=== PATIENT | female | born 1935 | race Hispanic/Latino ===

== ENCOUNTER 2018-02-07 17:39 | Inpatient (IN) | payer MEDICARE, MEDICAID ==
[~2018-02-07] VITALS: Ht 172.7 cm; Wt 46.3 kg
[2018-02-07 19:50] VITALS: BP 133/99
[2018-02-07] MEDS ORDERED: DIVA500T2 PO (20:03)
[2018-02-07] MEDS ORDERED: ALPR0.5T PO (20:03)
[2018-02-07] MEDS ORDERED: VILA40TA PO (20:03)
[2018-02-07] MEDS ORDERED: OLAN10TA9 PO (20:03)
[2018-02-07] MEDS ORDERED: CLON1TAB3 PO (20:03)
[2018-02-07] MEDS: KLONOPIN PO SCH (21:00)
[2018-02-07] MEDS ORDERED: DEPAKOTE SPRINKLE PO SCH (21:00)
[2018-02-07] MEDS ORDERED: XANAX PO PRN (21:00)
[2018-02-07] MEDS ORDERED: HALDOL PO PRN (21:30)
[2018-02-07] MEDS ORDERED: HALDOL IM PRN (21:30)
--- NOTE | 2018-02-07 23:30 | NUR ---
ADMIT PT. WAS ON THE UNIT FOLLOWING SHIFT REPORT. PT.'S SON WITH HER. PT. HIGH FALL RISK. DR. MARSHALL SKYPED WITH PT. AND HER SON. MEDICATION ORDERS RECEIVED DR. TYLER HAS BEEN NOTIFIED OF PT.S ARRIVAL. PER INQUIRY AT THE LONGTERM PT. WAS YELLING , DELUSIONAL,PARANOID SLEEP DISTURBANCE,LOOSING WEIGHT AND ANXIOUS.
--- NOTE | 2018-02-08 00:05 | NUR ---
DR. JAYSON TYLER NOTIFIED UNIT AND STATED HE WAS GOING TO VIEW PT.'S MEDICATIONS THIS MORNING.
[2018-02-08] MEDS ORDERED: MAGN400O7 PO (00:09)
[2018-02-08] MEDS ORDERED: SIME80TA16 PO (00:09)
[2018-02-08] MEDS ORDERED: TRAM50TA PO ×2 (00:09→00:30)
[2018-02-08] MEDS ORDERED: MECL25TA3 PO (00:09)
[2018-02-08] MEDS ORDERED: HYDR28.311 RC (00:09)
[2018-02-08] MEDS ORDERED: PHEN-406 PO (00:09)
[2018-02-08] MEDS ORDERED: ACET500T73 PO ×2 (00:09→00:30)
[2018-02-08] MEDS ORDERED: RANO500T2 PO (00:30)
[2018-02-08] MEDS ORDERED: PRAV20TA2 PO (00:30)
[2018-02-08] MEDS ORDERED: OXYB5TAB7 PO (00:30)
[2018-02-08] MEDS ORDERED: SODI1TAB15 PO (00:30)
[2018-02-08] MEDS ORDERED: VILA40TA PO (00:30)
[2018-02-08] MEDS ORDERED: LEVO50TA6 PO (00:30)
[2018-02-08] MEDS ORDERED: [UNRECOGNIZED DRUG - CODE] PO (00:30)
[2018-02-08] MEDS ORDERED: POTA10CA PO (00:30)
[2018-02-08] MEDS ORDERED: CLON0.1T PO (00:30)
[2018-02-08] MEDS ORDERED: ONDA4TAB7 PO (00:30)
[2018-02-08] MEDS ORDERED: LOSA50TA6 PO (00:30)
[2018-02-08] MEDS ORDERED: DICY10CA52 PO (00:30)
[2018-02-08] MEDS ORDERED: PANT40TA3 PO (00:30)
[2018-02-08] MEDS ORDERED: LUBI24CA7 PO (00:30)
[2018-02-08] MEDS ORDERED: CLOP75TA52 PO (00:30)
[2018-02-08] MEDS ORDERED: DOCU-123 PO (00:30)
[2018-02-08] MEDS ORDERED: LACT1CAP23 PO (00:30)
[2018-02-08] MEDS ORDERED: HYDR12.58 PO (00:30)
[2018-02-08] MEDS ORDERED: ASPI-655 PO (00:30)
--- NOTE | 2018-02-08 05:42 | NUR ---
PT. HAS NOT SLEPT,BEEN RESTLESS AND REQUIRED NURSE TO BE WITH HER AT ALL TIMES. ATTEMPTS TO GET OUT OF CHAIR AND BED WITHOUT ASKING FOR ASSIST AND IS NOT REDIRECTABLE..
--- NOTE | 2018-02-08 05:46 | NUR ---
BEHAVIORS PT. HAS ASKING WHAT ABOUT THE DOLL, PT. STATING SHE NEEDS TO SEE HER MOM THAT SHE DOES NOT KNOW SHE IS HERE. PT. WAS TALKING ABOUT DOING HER HOMEWORK. PT. STATED SHE WAS IN [employer]. PT. WAS LYING IN BED STATING THERE IS A DOG LYING ON HER FOOT. PT. ASKING TO GO TO THE BR FREQUENTLY. HAS HAD TWO LARGE BOWEL MOVEMENTS WITH SMALL AMOUNT OF BRIGHT RED BLOOD VISIBLE AND THIS HAS BEEN REPORTED TO DR. TYLER. PT. HAS HEMORRHOIDS.
[2018-02-08] MEDS: COLACE PO SCH (07:30)
[2018-02-08] MEDS: AMITIZA PO SCH (07:30)
[2018-02-08] MEDS ORDERED: TYLENOL PO PRN (07:30)
[2018-02-08] MEDS: RANEXA PO SCH (07:30)
[2018-02-08 07:56] VITALS: BP 189/79
[2018-02-08] MEDS: KLOR-CON 10 PO SCH ×2 (08:00→17:00)
--- NOTE | 2018-02-08 08:25 | NUR ---
behavior note: Patient has been yelling out for her . She is refusing to get out of bed, shower or take medications. Blood Pressure is 189/79 and she is on blood pressure medications. We will continue to offer fluids, food and medications.
--- NOTE | 2018-02-08 08:40 | PSYCH ---
DATE OF SERVICE: 02/07/2018 INITIAL PSYCHIATRIC HISTORY AND PHYSICAL CHIEF COMPLAINT: "I have not been eating very well." HISTORY OF PRESENT ILLNESS: This patient is an 82-year-old female who was an involuntary admission to the [facility]. She was accompanied by her son who had to give a lot of the history. The patient has a long history of severe dementia. It has been progressively getting worse. The patient has shown more behavior problems recently. She has had an extremely poor appetite and has been losing a lot of weight. She has reportedly lost about 30 pounds over the past month. She currently is 68 inches tall and weighs 102 pounds. She has had a lot of sundowning behavior. She has shown aggressive and irritable behavior toward staff. Staff has felt like she is a threat to harming others due to her aggressive and psychotic behavior. She has increased paranoia recently. She has odd and delusional thinking. She has had auditory and visual hallucinations reported by staff. She has a lot of somatic complaints including abdominal pain. She had a medical workup today done that was normal. She does see Dr. Solange Helms for mental health outpatient by telemedicine at the [facility] where she lives. The patient reportedly has been taking medications and has had multiple medication changes recently. She has been on Viibryd in the past that was not helpful and made her worse. Her son feels like she has been declining and had a lot worse behavior recently. The patient is a poor historian. She was able to state her name. She did not know the date today. She stated that the season was "summer." She was disoriented to place, time, and situation. She does have a poor appetite. Her sleep is up and down. She has odd and delusional thinking. She has auditory and visual hallucinations. She denied suicidal or homicidal ideation. Staff at the facility feels like she is a threat to harming herself and others due to her delusional and odd thinking. She is also a danger of deterioration. The patient has an increased anxiety level. She has been shaking a lot per staff. She is not able to give any other history tonight. Her son had to give most of the history as stated above. PAST PSYCHIATRIC HISTORY: The patient sees Dr. Solange Helms, who is a psychiatrist by Telemedicine at the [facility]. She has been diagnosed with dementia with behavior disturbance and unspecified anxiety in the past. She has never been hospitalized for psychiatric reasons. She has taken Xanax and multiple other psychiatric medications in the past. Benadryl reportedly causes her to be disoriented. She reportedly has been on Ativan in the past and had an adverse reaction to this and that is why she is on Xanax p.r.n. She has been on Lexapro in the past that was ineffective. She has been on Celexa in the past that was ineffective. She has been on Paxil and Cymbalta that did not help. She has been on Remeron in the past that did not help her gain weight. PAST MEDICAL HISTORY: 1. Aneurysm in 2011. 2. History of abdominal pain. 3. Gastroesophageal reflux disease. 4. Irritable bowel syndrome. 5. Hypothyroidism. 6. Constipation. 7. Arthritis. 8. Hypertension. 9. Low potassium. ALLERGIES: 1. PENICILLIN 2. CIPRO. 3. CODEINE. 4. LASIX. 5. SULFA DRUGS. CURRENT MEDICATIONS: 1. Xanax 0.5 mg p.o. q.6 hours p.r.n. anxiety. 2. Clonazepam 1 mg p.o. b.i.d. 3. Depakote 125 mg p.o. b.i.d. 4. Zyprexa 10 mg p.o. at bedtime. 5. Acidophilus 100 mg p.o. b.i.d. 6. Potassium 10 mEq p.o. b.i.d. 7. Plavix 75 mg p.o. daily. 8. Pravastatin 20 mg p.o. at bedtime. 9. Protonix 40 mg p.o. daily. 10. Ranexa 500 mg p.o. daily. 11. Aspirin 81 mg p.o. daily. 12. Simethicone 80 mg p.o. b.i.d. 13. Tylenol 500 mg p.o. t.i.d. 14. Tramadol p.r.n. 15. Losartan 50 mg p.o. daily. FAMILY PSYCHIATRIC HISTORY: None reported. SOCIAL HISTORY: The patient denies using tobacco, alcohol, or illicit drugs. She was in 2014. She had been since 1958. She has 2 sons. She is of the Restorationism orthodoxy. She graduated from high school. 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 She has good social support from her son. OBJECTIVE: VITAL SIGNS: Height is 68 inches, weight is 102 pounds, blood pressure is 144/76, heart rate is 84, respirations are 19, temperature is 97.2. The patient was in no physical pain or distress at the time of the interview. STRENGTHS: Family support, physical health intact. WEAKNESSES: Very confused, deteriorating dementia, recent weight loss and not eating very well. REVIEW OF SYSTEMS: CONSTITUTIONAL: Ongoing significant weight loss, some fatigue, no current insomnia with medication. NEUROLOGICAL: No headaches, no tremors, some dizziness, some weakness. PSYCHIATRIC: Some depression, severe anxiety, positive for psychosis, no crying spells. No abdoul. GASTROINTESTINAL: No diarrhea, no constipation, no nausea, intermittent stomach and gas pain, not reported today. MUSCULOSKELETAL: No abnormal muscle movements, no current pain. CARDIOVASCULAR: No chest pain or chest palpitations. RESPIRATORY: No shortness of breath. No wheezing or coughing. GENITOURINARY: No problems urinating. No pain on urination. No increased frequency. ENDOCRINE: No heat or cold intolerance. EYES: No eye pain or recent changes in vision. EARS: No recent changes in hearing. EXTREMITIES: Some lower extremity edema. SKIN: No current problems. Review of systems otherwise negative, reviewed by Dr. Huntley. MENTAL STATUS EXAMINATION: MUSCLE STRENGTH AND TONE: No recent changes . Within normal limits for the patient. GAIT AND STATION: Ataxic, falls risk, uses a walker. Small steps with very slow gait. APPEARANCE: Well groomed and good hygiene. She was not wearing dentures. Casual attire. Underweight. ATTITUDE AND BEHAVIOR: Cooperative and pleasant. EYE CONTACT: Good eye contact. MOOD AND AFFECT: Mood is reported as okay. Affect is constricted. SPEECH: Regular rate, volume, rhythm, and prosody. ORIENTATION: Oriented to person only. Disoriented to place, time, and situation. ATTENTION/CONCENTRATION: Fair attention and fair concentration. JUDGMENT/INSIGHT: Poor judgment and poor insight. THOUGHT PROCESS: Linear and goal directed. Loose at times. LANGUAGE: Citizen Of [place] and [place]. THOUGHT CONTENT: No suicidal or homicidal thoughts tonight. Positive for hallucinations. Positive for odd and delusional thinking. Positive for paranoia. FUND OF KNOWLEDGE: Poor. ASSOCIATIONS: Loose associations at times. MEMORY: Recent and remote memory are both impaired. ASSESSMENT: Major depressive disorder, recurrent, severe; generalized anxiety disorder; delusional disorder; primary insomnia; Alzheimer's type dementia. TREATMENT PLAN: 1. The patient will be an involuntary admission to the [facility] at the [facility]. The patient will be monitored closely for behaviors. 2. The patient's Viibryd will be discontinued. Her Depakote will be increased to 250 mg p.o. b.i.d. She will have her Depakote level monitored. She will be continued on Zyprexa 10 mg p.o. at bedtime. She will be continued on clonazepam 1 mg p.o. b.i.d. She will be continued on Xanax 0.5 mg p.o. q.6 hours p.r.n. anxiety. She will be placed on Haldol 2 mg p.o. or IM q.6 hours p.r.n. psychosis. The patient and the patient's son were agreeable with the plan. 3. The patient will see the general medical doctor for general medical health issues. The nurse on the unit will call the intermediate to confirm medications as there were some confusion of what general health medications she was on. We did review her medications with her son. 4. The patient will be encouraged to participate in all groups and activities. Hemalatha Huntley IV MD DR: /chyna JOB# [id number]
--- NOTE | 2018-02-08 08:55 | NUR ---
OT EVALUATION Information gathered from pt EMR to assist with evaluation process. Evaluation to be completed this date by RADHA Taylor. Signed: 02/08/18 at 854 by NARGIS Hull OT Addendum: 02/08/18 at 854 by NARGIS Hull OT Amended: Links added.
--- NOTE | 2018-02-08 08:57 | NUR ---
notified Dr. Fragoso: Yesterday fpc reported that patient had a small formed BM on 02/07/18. Upon assessment today patient is having blood from rectum and vagina, abdomen is hard, distended and near absent bowel sounds. Dr. Fragoso notified and he is placing orders.
[2018-02-08] MEDS: HYDROCHLOROTHIAZIDE PO SCH (09:00)
[2018-02-08] MEDS: PLAVIX PO SCH (09:00)
[2018-02-08] MEDS: BACID PO SCH ×2 (09:00→20:25)
[2018-02-08] MEDS: DEPAKOTE SPRINKLE PO SCH ×2 (09:00→20:26)
[2018-02-08] MEDS ORDERED: BENTYL PO SCH (09:00)
[2018-02-08] MEDS: ASPIRIN EC PO SCH (09:00)
[2018-02-08] MEDS: PROTONIX PO SCH (09:00)
[2018-02-08] MEDS: GENASYME PO SCH ×2 (09:00→20:27)
[2018-02-08] MEDS: KLONOPIN PO SCH ×2 (09:00→20:26)
[2018-02-08 09:17] LABS: CALCIUM 10.1 mg/dL (8.4-10.5)
[2018-02-08 09:19] LABS: BASOPHIL % 0.3 % (0.0-0.2); EOSINOPHIL % 0.3 % (0.0-5.0); HEMOGLOBIN 12.7 g/dL (12.0-15.0); LYMPHOCYTES # 0.8 10^3/uL (1.0-4.8); LYMPHOCYTES % 8.2 % (24.0-44.0); MEAN CELL HGB 26.7 pg (26-34); MEAN CELL HGB CONCENTRATION 31.5 g/dL (33-37); MEAN CORP VOLUME 84.8 fL (78-100); MEAN PLATELET VOLUME 9.9 fL (7.8-11.0); MONOCYTES # 0.8 10^3/uL (0.3-0.8); MONOCYTES % 7.9 % (5.0-12.0); NEUTROPHIL # 7.9 10^3/uL (1.8-7.7); NEUTROPHILS % 83.2 % (41.0-85.0); RED CELL DISTRIBUTION WIDTH 16.9 % (11.5-14.5); WHITE BLOOD CELL 9.5 10^3/uL (4.5-11.0)
--- NOTE | 2018-02-08 09:30 | NUR ---
BEHAVIOR NOTE: Patient offered Xanax 0.5 mg po mixed in water in syringe. Patient spit some of the mixed medication out.
[2018-02-08] MEDS: ULTRAM PO PRN (10:55)
[2018-02-08] MEDS: ZYPREXA ZYDIS PO SCH ×2 (11:38→20:25)
[2018-02-08] MEDS: BENTYL PO SCH ×2 (14:42→20:25)
--- NOTE | 2018-02-08 14:42 | NUR ---
BEHAVIOR NOTE: Patient is restless and wandering. unable to sit still. She is confused and disoriented and requiring 1:1 for safety of patient. She is talking about the past and referencing about people that are . Haldol 2 mg po offered to patient but she refused. Haldol 2 mg IM administered for above mentioned behaviors.
--- NOTE | 2018-02-08 14:50 | NUR ---
Dr. Fragoso notified: Dr. Fragoso notified about continued bleeding from vagina and rectum approx several quarter sized areas and that she has had x4 bloody briefs changed. Dr. Fragoso making an OB consult and writing orders for KUB.
--- NOTE | 2018-02-08 15:42 | NUR ---
FAMILY CONTACT: ANURAG SPOKE TO SONYARON TO INVITE HIM TO TREATMENT TEAM ON 02/09/18. SON STATES HE WILL NOT BE ABLE TO MAKE THIS MEETING BUT WILL TRY TO MAKE THE NEXT. ANURAG INFORMED SON THAT WE HAVE THESE MEETINGS EVERY WEDNESDAY MORNING AT 0800/0830. SON VERBALIZED UNDERSTANDING.
--- NOTE | 2018-02-08 15:45 | NUR ---
MMSE: . PT ORIENTED TO SELF Addendum: 02/08/18 at 1545 by Mikaela Burroughs LMSW SW Amended: Links added.
--- NOTE | 2018-02-08 15:45 | NUR ---
GMAS: 0 PT UNABLE TO COGNITIVELY COMPLETE ASSESSMENT. PT INVOLUNTARY Addendum: 02/08/18 at 1546 by Mikaela Burroughs LMSW SW Amended: Links added.
--- NOTE | 2018-02-08 15:49 | NUR ---
SYMPTOMATOLOGY EVAL: PT PRESENTED A DIRECT ADMIT FROM [facility] DUE TO REPORTED INCREASE IN ANXIETY, DELUSIONAL THOUGHTS, HALLUCINATIONS, CRYING AND YELLING OUT AND SEVERE PARANOIA. STAFF REPORTS THAT PT THINKS SOMEONE IS TRYING TO RAPE HER. STAFF REPORTS THAT PT HAS NOT BEEN SLEEPING OR EATING AND HAS LOST 30 POUNDS OVER THE PAST MONTH. PT CURRENTLY RESIDES AT [facility] IN [facility] AND WILL RETURN UPON DISCHARGE. RECOMMENDED INPATIENT TREATMENT ON THE [facility] ON AN INVOLUNTARY STATUS AT THIS TIME. Addendum: 02/08/18 at 1553 by DILCIA Pak Amended: Links added.
--- NOTE | 2018-02-08 16:51 | NUR ---
NOTIFIED Dr. Fragoso Notified Dr. Fragoso of patient not urinating all shift. Instructed to bladder scan patient and notify him of results. Addendum: 02/08/18 at 1704 by APRIL Clark RN results of bladder scan is greater than 999cc. Dr. Fragoso notified.
--- NOTE | 2018-02-08 18:00 | NUR ---
Dr. Russo: Dr. Russo here for insertion of catheter with guide wire. 1600cc out red tinged urine out. Urine sample obtained for urinalysis.
--- NOTE | 2018-02-08 18:15 | DIREP ---
PROCEDURE:XRAY ABDOMEN SINGLE VW COMPARISON:[facility], CR, XRAY ABDOMEN SINGLE VW, 04/22/2017, 02:21 PM. INDICATIONS:Abdominal distension FINDINGS: BOWEL GAS PATTERN:No obstruction. Bowel is displaced out of the pelvis by 18 cm mass, presumably fluid-filled bladder CALCIFICATIONS:None significant. LUNG BASES:Clear. BONES:Normal. OTHER:No additional findings. CONCLUSION: 1. Large bladder mass, presumably fluid-filled bladder Dictated by: Fan Matson Jr. on 02/08/2018 at 06:09 PM
--- NOTE | 2018-02-08 18:20 | NUR ---
Notified Son: Notified son of patient status and being transferred to Med/Surg for treatment and son Gerson agreed and will notify other family members.
--- NOTE | 2018-02-08 18:24 | NUR ---
IV 18g IV saline lock to Lt antecubital attempt x1 with aseptic technique.
[2018-02-08 19:00] VITALS: BP 144/62
--- NOTE | 2018-02-08 19:14 | NUR ---
PIRP: P: ALTERED THOUGHT PROCESS. I: Provide medications as ordered . Encourage attendance and participation of all groups. Assist patient in differentiating between internal and external reality. R: Patient has not taken any medication today by mouth except for Tramadol. She has not eaten or drank and has required insertion of catheter d/t unable to void. See previous notes. Patient has been restless and has wandered with staff at side and gait belt in use of walker. Patient has been talking to people that are , but has been easily redirected. P: Continue current plan of care. When resulted notify Dr. Fragoso of Cat Scan results.
--- NOTE | 2018-02-08 19:50 | DIREP ---
PROCEDURE:CT ABDOMEN/PELVIS W/ CONTRAST COMPARISON:[facility], CT, CT ABD/PELVIS W/ CONTRAST, 02/27/2016, 05:36 PM. INDICATIONS:Suprapubic pain and concern for enteric fistula TECHNIQUE:Axial images were created through the abdomen and pelvis with non-ionic intravenous contrast material. No oral contrast was administered. Sagittal and coronal reconstructions were performed from source images. FINDINGS: LUNG BASES:No consolidation. No effusion LIVER:Multiple hepatic cysts, unchanged from the 2016 compares BILIARY:Interval enlargement of the gallbladder may represent hydrops. The common duct diameter is unchanged but there is a questionable radiodensity at the most distal end of the common duct less than 5 mm in diameter, series 2/image 31. This could represent a distal stone. PANCREAS:Normal. No lesion, fluid collection, ductal dilatation, or atrophy. SPLEEN:Normal. No enlargement or focal lesion. ADRENALS:Normal. No mass or enlargement. URINARY TRACT:Lower pole nephrolith left kidney 5 mm in diameter. No obstruction detected lower pole cyst left kidney 1.4 cm in diameter unchanged. AORTA/VASCULAR:Normal. No aneurysm. RETROPERITONEUM:Paucity of intra-abdominal fat BOWEL/MESENTERY:No oral contrast, limited evaluation of the small bowel. No fluid-filled or dilated small bowel loops detected. ABDOMINAL WALL:Normal. No mass or hernia. PELVIC ORGANS:Free fluid in the pelvis , retained stool in the rectum, Glass catheter in the bladder BONES:Lumbar spondylosis, no compression fractures OTHER:Negative. CONCLUSION:Distended gallbladder. Possible distal gallstone at the ampulla series 2/image 31. Paucity of intra-abdominal fat. No free air detected. No oral contrast. Moderate retained stool rectum. Dictated by: Geni Osborn MD on 02/08/2018 at 07:40 PM
[2018-02-08 20:01] LABS: BILIRUBIN,URINE NEGATIVE (NEGATIVE); UA COLOR BLOODY (YELLOW)
[2018-02-08 20:02] LABS: APPEARANCE,URINE CLOUDY (CLEAR); WBC,URINE TNTC WBC/HPF (0-2)
--- NOTE | 2018-02-08 20:07 | NUR ---
CT CALLED AND NOTIFIED DR. TYLER OF CT REPORT OF ABDOMEN. ORDERS RECEIVED TO KEEP PATIENT ON UNIT. D/C IV, PUSH FLUID AND TO CONTINUE WITH MEDICATION AND DIET ORDERED.
[2018-02-08] MEDS: MAG-OX PO SCH (20:26)
--- NOTE | 2018-02-08 20:38 | NUR ---
STATUS DR. MARSHALL NOTIFIED OF PATIENT'S CT RESULTS AND PLACEMENT OF MENDOZA CATHETER. VERBAL ORDERS RECEIVED TO KEEP PT 1:1 R/T WANDERING, AND ATTEMPTING TO PULL OUT CATHETER. Addendum: 02/08/18 at 2042 by Deborah Hernández RN- ANKUR RN TELEPHONE ORDER RECEIVED FOR 1:1
[2018-02-08] MEDS ORDERED: DITROPAN PO SCH (21:00)
[2018-02-08] MEDS ORDERED: COZAAR PO SCH (21:00)
[2018-02-08] MEDS ORDERED: ZOCOR PO SCH (21:00)
--- NOTE | 2018-02-09 04:47 | NUR ---
PIRP P-ALTERED THOUGH PROCESS, RISK FOR FALLS I- 1:1 MONITORING. INSTRUCT ON USE OF ASSISTIVE DEVICES FOR SAFE AMBULATION. GIVE MEDICATION ORDERED. ENCOURAGE PARTICIPATION IN GROUP. PROVIDE SUPPORTIVE ENVIRONMENT. RE-DIRECT WHEN NECESSARY. R-PATIENT QUIET, SHOWING SOME CONFUSION. UNABLE TO ANSWER DEPRESSION OR ANXIETY LEVEL. ATTEMPTED TO GET OUT OF BED SEVERAL TIMES, STATING THAT SHE WANTED TO GET INTO BED. P-CONTINUE WITH PLAN OF CARE.
[2018-02-09] MEDS ORDERED: SYNTHROID PO SCH (06:30)
[2018-02-09 07:41] VITALS: BP 179/75
[2018-02-09] MEDS: AMITIZA PO SCH (07:47)
[2018-02-09] MEDS: RANEXA PO SCH (07:48)
[2018-02-09] MEDS: COLACE PO SCH (07:48)
--- NOTE | 2018-02-09 08:10 | NUR ---
Status Pt is alert and oriented to self. Has calm, cooperative affect. Has not been restless or combative this A.M. Slept approx 8.25hr @ HS. Reports feeling "some" discomfort to lower abdomen, but states, "It's a lot better than it was." Interacts appropriately with staff, does not initiate interaction but responds appropriately to approach.
--- NOTE | 2018-02-09 08:52 | NUR ---
Tx team Pt was seen by Dr. Huntley and tx team. Dr. Fragoso present to discuss pt's status regarding xray and CT findings. Recommendation made for pt to discharge with hospice care, as pt no longer meets inpatient criteria. Pt's son, Maury Pond, notified of status and discharge plan, agreeable to discharging pt back to [facility] with hospice care. Spoke to Susy Bauman @ [facility] and notified of plan.
--- NOTE | 2018-02-09 09:08 | PRM.PN ---
Mood: UP AND DOWN Sleep: SLEPT 8.25 HOURS LAST NIGHT, SLEEPING BETTER Appetite: LOW APPETITE Suidical thoughts: NONE REPORTED Homicidal thoughts: NONE REPORTED Recent stressors: STRESS OF MENTAL ILLNESS Family support: SON IS SUPPORTIVE Aggressive Behavior: NONE REPORTED Ability to Perform ADL'sc: NEEDS ASSISTANCE Psychotic sympstoms: DELUSIONAL THINKING RELATED TO DEMENTIA Manic Symptoms: NONE REPORTED Living situation: LIVES AT [facility] Illicit Drug usec: NONE REPORTED Alcoholo use: NONE REPORTED Tobacco use: NONE REPORTED Family,PT,Surgical,&Current HX: Anxity Symptoms: MODERATE ANXIETY LEVEL Anger/Irritablility: LIMITED ANGER AND IRRITABILITY Muscle Strength & Tone: WNL Gait & Station: Ataxic Appearance: Appears older, Well groomed/hygience, Casual attire, Underweight Attitude & Behaviour: Uncooperative, Poor eye contact Mood & Affect: Euthymic/appr/congruent Orientation: Disoriented to place, Disoriented to time, Disoriented to situation Attention/Concentration: Poor attention, Poor concentration Speech: Impaired Judgement/Insight: Poor judgement, Poor insight Thought Process: Loose, Tangential Language: Argentine, Other Thought content/Abnormal/Psych: Delusions Fund of Knowledge: Other Associations: SOHA Memory (recent and remote): Recent memory repaired, Remote memory repaired Constitutional: None Neurological: None Psychiatric: Depressed, Anxious, Psychosis Hematite I: DELUSIONAL DISORDER; PSYCHOSIS; ANXIETY; DEMENTIA Hematite II: DEFERRED Hematite III: REFER TO PMH/MEDICAL CHART Hematite IV: STRESS OF MENTAL ILLNESS, STRESS OF MEDICAL ISSUES Hematite V: GAF=25 Assessment/Plan Assessment/Plan Assessment/Plan THE PATIENT WAS SEEN BY DR. MARSHALL FACE TO FACE ALONG WITH THE TREATMENT TEAM. THE PATIENT'S VITAL SIGNS WERE: CZ=216/75, TEMP.=98.6, PULSE=69, RESP.=16, O2 SAT WAS 97% ON RA. THE PATIENT SLEPT 8.25 HOURS LAST NIGHT. THE PATIENT HAS A POOR APPETITE. 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 THE PATIENT HAS HAD A CATHETER PLACED. SHE HAS BEEN FEELING BETTER SINCE HER CATHETER WAS PLACED. THE PATIENT DENIES FEELING DEPRESSED. THE PATIENT DENIES SI OR HI. THE PATIENT DENIES FEELING ANGRY. THE PATIENT IS NOT HAVING AUDITORY OR VISUAL HALLUCINATIONS. THE PATIENT WAS GIVEN PRN HALDOL YESTERDAY DUE TO YELLING. ( BEFORE THE CATHETER WAS PLACED.) THE PATIENT WAS ABLE TO STATE HER NAME. THE PATIENT IS DISORIENTED TO PLACE, TIME, AND SITUATION. THE PATIENT REPORTS LESS PHYSICAL PAIN TODAY. THE PATIENT HAS SOME DELUSIONAL THINKING RELATED TO HER DEMENTIA. THE PATIENT HAS A MODERATE ANXIETY LEVEL. DR. MARSHALL SPOKE WITH THE DR. TYLER ABOUT THE CASE. DR. MARSHALL SPOKE WITH HER SON WELL. ASSESSMENT: DELUSIONAL DISORDER; GENERALIZED ANXIETY DISORDER; ALZHEIMER'S DEMENTIA WITH BEHAVIOR PROBLEMS PLAN: 1) DISCHARGE FROM THE BEHAVIORAL HEALTH UNIT. 2) CONTINUE CURRENT MEDICATIONS. STAFF AGREEABLE WITH THE PLAN. SUPPORTIVE THERAPY GIVEN. THE PATIENT DENIES SI OR HI. SAFETY PLANS WERE DISCUSSED. 20 MINUTES SPENT IN SUPPORTIVE THERAPY, MEDICATION EDUCATION, AND DISCHARGE PLANNING. THE PATIENT NEEDS A HOSPICE REFERRAL. Problems: (1) Delusions Status: Resolved ICD Code: F22 - Delusional disorders SNOMED: [id number] Patient History: MARKO MARSHALL IV, MD Feb 09, 2018 09:08
[2018-02-09] MEDS: KLOR-CON 10 PO SCH (09:14)
[2018-02-09] MEDS: HYDROCHLOROTHIAZIDE PO SCH (09:15)
[2018-02-09] MEDS: MAG-OX PO SCH (09:15)
[2018-02-09] MEDS: ASPIRIN EC PO SCH (09:15)
[2018-02-09] MEDS: GENASYME PO SCH (09:15)
[2018-02-09] MEDS: DEPAKOTE SPRINKLE PO SCH (09:15)
[2018-02-09] MEDS: PROTONIX PO SCH (09:15)
[2018-02-09] MEDS: ULTRAM PO PRN (09:15)
[2018-02-09] MEDS: PLAVIX PO SCH (09:15)
[2018-02-09] MEDS: BENTYL PO SCH (09:15)
[2018-02-09] MEDS: BACID PO SCH (09:15)
[2018-02-09] MEDS: KLONOPIN PO SCH (09:16)
[2018-02-09] MEDS ORDERED: DIVA125C PO (09:19)
[2018-02-09] MEDS ORDERED: HALO1TAB PO (09:19)
[2018-02-09] MEDS ORDERED: Magnesium Oxide PO (09:20)
--- NOTE | 2018-02-09 10:10 | NUR ---
PICTURES DISCHARGE PICTURE OF BRUISE ON PTS RIGHT INNER ARM TAKEN. PLACED IN CHART.
--- NOTE | 2018-02-09 11:19 | NUR ---
Clinicals Clinical information faxed to Susy Gonzalez @ [phone] @ [facility].
--- NOTE | 2018-02-09 11:39 | DSH ---
DATE OF DISCHARGE: 02/09/2018 HOSPITAL COURSE: The patient is an 82-year-old female who was involuntarily admitted to the [facility] Unit for behavior problems at the [facility]. The patient was reportedly very anxious and aggressive towards staff. She was pacing a lot throughout the hallways. She did have a medical exam when she came to the hospital and it was found that she had an 18 cm tumor in her bladder. She had a catheter placed in her bladder, which has significantly helped with her behaviors. She had a lot of fluid buildup and is able to drain her urine. She is going to be discharged on the catheter. She had her Depakote increased to 250 mg twice a day for behavior problems. She is not over sedated from her medications. She was sleeping alright. Her appetite is low. She is underweight. It is being recommended that she will be referred to hospice. Dr. Huntley did speak with Dr. Fragoso, the general medical doctor and her son and they are both agreeable with this plan. The patient was not suicidal or homicidal on discharge. She does struggle with extreme confusion and is oriented to person only. She was not having any hallucinations or severe delusions. DISCHARGE DIAGNOSES: Delusional disorder; generalized anxiety disorder; Alzheimer type dementia with behavior disturbance; recently diagnosed bladder tumor. DISCHARGE PLAN: 1. The patient is being discharged back to the [facility] on hospice care, is the recommendation. 2. The patient can follow up with outpatient psychiatry at that facility via tele medicine. 3. The patient will continue on the following psychotropic medications: Xanax 0.5 mg p.o. q.6 hours p.r.n. anxiety, clonazepam 1 mg p.o. b.i.d., Depakote 250 mg p.o. b.i.d., Haldol 2 mg p.o. q.6 hours p.r.n. psychosis, and Zyprexa Zydis 10 mg p.o. at bedtime. The patient is tolerating these medications fine. 4. The patient is to follow up with her general medical doctor too to go over medication reconciliation. Hemalatha Huntley IV MD DR: /chyna JOB# [id number]
--- NOTE | 2018-02-09 11:44 | CNH ---
DATE OF CONSULTATION: 02/08/2018 REASON FOR CONSULTATION: Consultation in the [facility] because of diagnosis of urinary retention. PROCEDURE: Insertion of Glass catheter with a guidewire. HISTORY OF PRESENT ILLNESS: This is an 82-year-old white female I was consulted in the [facility] unit because of the marked bladder distention. The nurses tried to put a catheter, but they failed to do it. So, I was called in and I inserted an 18-[place]oven[place] Glass catheter with a guidewire easily and more than almost a liter of fluid came out from the bladder, the urine. The patient tolerated the procedure well. Jae Russo MD DR: JORDEN/chyna JOB# [id number]
--- NOTE | 2018-02-09 12:45 | NUR ---
Discharge Discharge education provided to pt's son, Maury. Discussed treatment plan, medication changes, and provided with educations regarding ribeiro catheter, UTIs, and hospice care. Questions and concerns answered, reviewed information regarding Xray and CT results.
[2018-02-09 12:52] VITALS: BP 179/75
--- NOTE | 2018-02-09 12:52 | NUR ---
Off unit Pt transported off unit via wheelchair alongside son and transportation staff from [facility]. No distress noted.
--- NOTE | 2018-02-09 13:47 | NUR ---
Report Called [facility] and Spoke to Susy Gonzalez RN, report given.
--- NOTE | 2018-02-11 12:36 | NUR ---
Co-Signature For MT Assessment I, LILIA Wilson am co-signing Music Therapy Activities Assessment with completion of this attached note. Signed: 02/11/18 at 1236 by LILIA Wilson OT Addendum: 02/11/18 at 1236 by LILIA Wilson OT Amended: Links added.
--- NOTE | 2018-02-15 21:57 | CNH ---
DATE OF CONSULTATION: REFERRING PHYSICIAN: Dr. Huntley with Psychiatry. REASON FOR CONSULTATION: Medical management of multiple medical problems. HISTORY OF PRESENT ILLNESS: The patient was seen on 02/08/2018 in the Geropsych Unit due to abdominal pain. She was recently admitted to the Geropsych unit the day before. She has a history of advanced dementia. She has an unknown baseline functional status. She was complaining of some abdominal pain. She was cooperative with exam, but was unable to give good history. She was tender only in the suprapubic region. She did have bowel sounds. She also had a bladder scan that showed significant urinary retention and Urology was consulted for urinary catheter placement. Once the catheter was placed, she had 1600 mL of urine output. It was positive for elaine hematuria. She had abdominal x-ray performed due to the abdominal pain which reported large bladder mass. PAST MEDICAL HISTORY: Includes cerebral aneurysm, GERD, irritable bowel syndrome, hypothyroidism, hypertension and dementia. PAST SURGICAL HISTORY: Unknown surgeries. ALLERGIES: PENICILLIN, SULFA FLUOROQUINOLONES, LASIX, AND CODEINE. REPORTED HOME MEDICATIONS: List includes only clonidine, aspirin, Plavix 75 mg daily, levothyroxine 50 mcg daily, losartan 50 mg at night, meclizine as needed, oxybutynin 10 mg daily, Protonix daily, pravastatin 20 mg at night, Ranexa 500 mg daily and multivitamin daily. SOCIAL HISTORY: She is a resident of a nursing facility. No known alcohol, tobacco or illicit drug use history. FAMILY HISTORY: Negative for early coronary artery disease or diabetes. REVIEW OF SYSTEMS: Unable to reliably obtain due to advanced dementia. PHYSICAL EXAMINATION: VITAL SIGNS: Upon arrival, height 172.7 cm, weight 46.26 kilograms. Temperature 97.7, pulse 77, respiratory rate is 20, blood pressure 133/99, O2 saturation 100% on room air. GENERAL: She is alert, chronic ill-appearing lady. HEENT: Pupils equal, round, reactive to light. Sclerae are anicteric. Oropharynx is clear. Mucous membranes are slightly dry. NECK: Supple, no lymphadenopathy. CARDIOVASCULAR: At time of exam is regular rate and rhythm. LUNGS: Clear bilaterally. ABDOMEN: Soft. Bowel sounds are present. She is tender to palpation in the suprapubic region with some distention. EXTREMITIES: No cyanosis, clubbing or significant edema. NEUROLOGIC: Grossly nonfocal. LABORATORY DATA: UA after Glass catheter was placed by Urology shows a pH of 7, specific gravity is 1.010, 100 mg/dL protein, positive ketones, positive nitrite, positive leukocyte esterase, too numerous to count rbcs and wbcs with elaine hematuria, many bacteria. CBC: White count is 9.5, hemoglobin 12.7, platelets 280, 83% neutrophils, 8% lymphocytes, 8% monocytes. Sodium 140, potassium 3.1, chloride 99, CO2 29, BUN 24, creatinine 0.7, glucose 132, calcium is 10.1, magnesium 1.6, total bilirubin 0.6, AST 19, ALT 20, alkaline phosphatase 70, total protein 6.9, albumin 3.4 and valproic acid 14. IMAGING STUDIES: She had a imaging done, abdominal x-ray, which showed what was read as a large bladder mass, possibly fluid filled bladder. 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 1. Urology was consulted. Urinary catheter was placed. 2. She did have some bleeding noted by nursing staff. It was unclear of source until the catheter was placed. She has elaine hematuria. The KUB read as large mass. CT abdomen and pelvis will be done. 3. Continue cardiovascular medications. She has end-stage heart disease, she is on Ranexa for chronic angina. 4. We will contact sons to determine code status. 5. She does have evidence of urinary tract infection, but will not take pills at all. We will talk to the sons about moving to the medical floor for possible IV therapy since she will not take oral medications. This will be dependent on the final decision about treatment in an acute care facility versus hospice care. 6. We will follow up CT report for abdomen and pelvis. There are no signs of GI problems. She does have bowel sounds. It is probably mostly bladder problem with hemorrhagic cystitis. Time spent on 02/08/2018 is 45 minutes. Of note, this plan was discussed with the patient's son by phone. They do understand it was an abnormal x-ray. CT report was followed up. Son was informed that CT abdomen and pelvis did not show any signs of tumor, but there is hemorrhagic cystitis. The patient's son decided that they wanted to take her back to [facility] on hospice care. Vin Fragoso MD DR: CHARISSA/chyna JOB# [id number] YESY
== END 2018-02-09 12:52 | disposition hospice, home (50) | DRG 885 ==
LOC: GP 17:39 → EEVIPCON 17:39
PROVIDERS: ADMIT Psychiatry & Neurology Psychiatry; ATTEND Psychiatry & Neurology Psychiatry
PROC: 0T9B70Z Drainage of Bladder with Drainage Device, Via Natural or Artificial Opening (ICD-10-PCS; principal; 2018-02-08)
DX: F22 Delusional disorders (principal); F05 Delirium due to known physiological condition; E44.0 Moderate protein-calorie malnutrition; F33.2 Major depressive disorder, recurrent severe without psychotic features; G30.9 Alzheimer's disease, unspecified; F02.81 Dementia in other diseases classified elsewhere, unspecified severity, with behavioral disturbance; Z68.1 Body mass index [BMI] 19.9 or less, adult; F41.1 Generalized anxiety disorder; D49.4 Neoplasm of unspecified behavior of bladder; E03.9 Hypothyroidism, unspecified; F51.01 Primary insomnia; I10 Essential (primary) hypertension; K21.9 Gastro-esophageal reflux disease without esophagitis; K58.9 Irritable bowel syndrome, unspecified; N32.89 Other specified disorders of bladder; Z51.5 Encounter for palliative care; R33.9 Retention of urine, unspecified; M19.90 Unspecified osteoarthritis, unspecified site; Z88.0 Allergy status to penicillin; Z88.1 Allergy status to other antibiotic agents; Z88.6 Allergy status to analgesic agent; Z88.8 Allergy status to other drugs, medicaments and biological substances; Z88.2 Allergy status to sulfonamides; Z79.899 Other long term (current) drug therapy; Z79.82 Long term (current) use of aspirin; Z79.02 Long term (current) use of antithrombotics/antiplatelets
CPT/HCPCS: 36415; 74018; 74177; 80053; 80164; 81000; 83735; 85025; 85651; 87077; 87086; 87186; 97150; 97165; J3480; 74000; G8987; G8988; J1630; Q9965